=== PATIENT | male | born 1950 | race Caucasian/White ===

== ENCOUNTER → 2016-09-02 | Outpatient (CLI) | payer OTHER ==
[~2016-09-02] MED LIST: ALLO300T2 PO; ASPEC325 PO; LVNIS40 SQ; RXC5 PO
== END | disposition home or self-care (01) ==
LOC: C.PATHSPEC 07:45
PROVIDERS: ATTEND Orthopaedic Surgery
DX: M1A.9XX1 Chronic gout, unspecified, with tophus (tophi) (principal)